=== PATIENT | male | born 1930 | race Caucasian/White ===

== ENCOUNTER 2018-09-22 08:29 | Emergency (ER) | payer MEDICARE, BC ==
[2018-09-22] MEDS ORDERED: Fentanyl 100 MCG/2 ML VIAL ONE (08:47)
--- NOTE | 2018-09-22 21:40 | RAD ---
LEFT WRIST THREE VIEWS: Date: 09-22-18 FINDINGS: The bones are quite osteoporotic which does decrease the sensitivity of the study somewhat. There is a prominent amount of soft tissue swelling, particularly on the dorsum of the hand and wrist. Irregularity is seen around the neck of the distal fourth metacarpal. While I suspect a fracture here , it may be old. The findings should be correlated with the clinical exam. 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 No other definite carpal fractures were seen. There are, carlos eddie, several flecks of bone just dorsal to the carpals seen only on the lateral view. This suggests t he possibility of a triquetral avulsion of indeterminate age. The distal radius and ulna appear intac t. IMPRESSION: 1. Probable prior trauma to the fourth metacarpal neck, age indeterminate. Correlate with history of clinical exam. 2. Suspect small avulsion fracture from the dorsum of the triquetral bone. I cannot tell if this is n ew or old. Code T POS: HOME
--- NOTE | 2018-09-22 21:42 | RAD ---
LEFT HAND THREE VIEWS: Date: 09-22-18 History: Osteoporosis decreases the sensitivity of the study. There is irregularity around the fourth metacarpal neck. I suspect a fracture here, but it could be old. The findings should be correlated w ith the exact site of pain. Arthritic changes are seen in the first carpal metacarpal joint. There is significant swelling of the dorsum of the hand. Flecks of bone are seen posterior to the carpals stefanie t most likely represent an avulsion from the triquetral bone, age indeterminate. IMPRESSION: 1. Irregularity of the fourth metacarpal neck, most likely fracture, but the age indeterminate. Corre late with clinical exam. 2. 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 3. Probable avulsion from the dorsum of the triquetral bone, age indeterminate. Code T POS: HOME
== END 2018-09-22 10:00 | disposition home or self-care (01) ==
LOC: BURERS 08:29
DX: S63.502A Unspecified sprain of left wrist, initial encounter (principal); W01.0XXA Fall on same level from slipping, tripping and stumbling without subsequent striking against object, initial encounter
CPT/HCPCS: 94760; 96374; J3010

== ENCOUNTER 2020-11-16 17:26 | Emergency (ER) | payer MEDICARE, BC ==
[~2020-11-16 17:26] MED LIST: Iopamidol 370 76% 100 ML VIAL ONE
[2020-11-16] MEDS ORDERED: Ondansetron PF 4 MG/2 ML Vial ONE ×2 (17:32→19:28)
[2020-11-16] MEDS ORDERED: Glycopyrrolate 0.4 MG/ 2 ML VIAL ONE (17:49)
[2020-11-16] MEDS ORDERED: Famotidine In NaCl 20 mg/50 ml Premix Bag ONE (17:49)
[2020-11-16 18:01] LABS: #Basophils 0.1 thou/uL (0.0-0.2); #Eosinphils 0.1 thou/uL (0.0-0.7); #Lymphocytes 1.1 thou/uL (1.20-3.40); #Monocytes 0.5 thou/uL (0.11-0.59); %Basophils 0.8 % (0.0-1.0); %Eosinophils 0.9 % (0.0-10.0); %Lymphocytes 13.7 % (21.0-51.0); %Monocytes 6.7 % (0.0-10.0); Hemoglobin 15.9 g/dL (14.0-18.0); Mean Corpuscular HGB CONC 31.5 g/dL (32.0-36.0); Mean Corpuscular Hemoglobin 31.8 pg (27.0-31.0); Mean Platelet Volume 7.1 fL (7.4-10.4); Platelet Count 222 thou/uL (130-400); RBC Distribution Width 13.1 % (11.5-14.5); White Blood Cell (WBC) Count 7.7 thou/uL (4.8-10.8)
[2020-11-16 18:18] LABS: ALT (SGPT) 21 U/L (8-55); AST (SGOT) 29 U/L (5-34); Albumin 4.5 g/dL (3.4-4.8); Alkaline Phosphatase 99 U/L (40-110); Anion Gap 17 mmol/L (10-20); BUN (Urea Nitrogen) 35 mg/dL (8.4-25.7); Bilirubin, Total 0.6 mg/dL (0.2-1.2); Calc. Creatinine Clearance 0 mL/min (70-130); Calcium 9.4 mg/dL (7.8-10.44); Carbon Dioxide 26 mmol/L (23-31); Chloride 103 mmol/L (98-107); Globulin 3.7 g/dL (2.4-3.5); Glucose 122 mg/dL (83-110); Protein, Total 8.2 g/dL (5.8-8.1); Sodium 142 mmol/L (136-145)
[2020-11-16] MEDS ORDERED: Cefepime 2 GM VIAL ONE (19:28)
[2020-11-16] MEDS ORDERED: Fentanyl 100 MCG/2 ML VIAL ONE (19:28)
[2020-11-16] MEDS ORDERED: metroNIDAZOLE 500 MG/100 ML BAG ONE ×2 (19:28→20:17)
[2020-11-16] MEDS ORDERED: Sodium Chloride 0.9% 100 ML ONE (19:29)
[2020-11-16 19:46] LABS: Bilirubin Negative (Negative); Blood, Urine Negative (Negative); Clarity Clear (Clear); Glucose, Urine (Dipstick) Negative (Negative); Ketone, Urine Negative (Negative); Leukocyte Negative (Negative); Nitrite Negative (Negative); Protein, Urine (Dipstick) Negative (Neg-Trace); Specific Gravity, Urine 1.015 (1.005-1.030); Urobilinogen 0.2 mg/dL (Less than 2)
[2020-11-16 20:46] LABS: SARS-CoV-2 NAA Rapid Test Not Detected (NotDetected)
== END 2020-11-16 21:15 | disposition short-term general hospital (02) ==
LOC: BURERS 17:26
DX: K43.6 Other and unspecified ventral hernia with obstruction, without gangrene (principal); K56.609 Unspecified intestinal obstruction, unspecified as to partial versus complete obstruction; Z79.899 Other long term (current) drug therapy
CPT/HCPCS: 0240U; 36415; 74177; 80053; 81003; 84484; 85025; 93005; 94760; 96365; 96367; 96375; 96376; J0692; J2405; J3010; J3490; Q9967

== ENCOUNTER 2022-01-06 11:02 | Emergency (ER) | payer MEDICARE, BC | END 2022-01-06 12:58 | disposition home or self-care (01) | LOC: BURERS 11:02 | DX: S93.601A Unspecified sprain of right foot, initial encounter (principal); S00.83XA Contusion of other part of head, initial encounter; I10 Essential (primary) hypertension; Z79.899 Other long term (current) drug therapy; W18.30XA Fall on same level, unspecified, initial encounter | CPT/HCPCS: 70450; 70486 ==